=== PATIENT | female | born 1955 | race Caucasian/White ===

== ENCOUNTER 2017-05-02 06:47 | Day surgery (SDC) | payer MEDICARE, OTHER ==
[~2017-05-02] VITALS: Ht 167.6 cm; Wt 61.4 kg
[2017-05-02 07:51] VITALS: Ht 167.6 cm; Wt 61.4 kg
[2017-05-02] MEDS ORDERED: ATIVAN (07:55)
[2017-05-02] MEDS ORDERED: SEROQUEL (07:55)
[2017-05-02] MEDS ORDERED: ANTIDEPRESSANT (07:55)
[2017-05-02 08:12] VITALS: BP 183/102; PULSE 83; RESP 13
[2017-05-02] MEDS ORDERED: MIDAZOLAM 1 MG/ML 2 ML INJ ONE (08:16)
[2017-05-02] MEDS ORDERED: PROPOFOL 20 ML ONE (08:16)
[2017-05-02] MEDS ORDERED: LIDOCAINE 2% (SDV) 5 ML INJ ONE (08:16)
[2017-05-02] MEDS ORDERED: LABETALOL HCL 20MG INJ ONE (08:53)
--- NOTE | 2017-05-02 08:54 | OPPN ---
Date/Time of Note Date/Time of Note DATE: 05/02/17 TIME: 08:48 Proc Note GI Procedure date: May 02, 2017 Pre-procedure Diagnosis Patient presenting with history for chronic abdominal pain unresponsive to routine therapy peptic ulcer disease rule out gastroesophageal reflux disease Post-procedure Diagnosis Moderate degree of reflux esophagitis Hiatal hernia Operation Performed EGD Surgeon: SOFIA ALVAREZ MD Anesthesia Type: MAC Anesthesiologist: AURORA NEGRON DO Estimated blood loss: none Transfusion Required: no Specimens esophageal biopsy Biopsy of stomach Grafts/Implants: none Tubes/Drains None Complications: no Pt Condition post procedure: stable Indications Abdominal pain heartburn Operative\Procedure Findings Informed written consent is obtained patient was given anesthesia intravenously by anesthesiologist She became somnolent Olympus video endoscope was introduced into the oropharynx Esophagus linear erosions were noted in the distal esophagus Labs were obtained to rule out Correa's esophagus The stem was advanced into the stomach hiatal hernia was noted \No gastritis no ulcer disease noted Biopsy was obtained from the antrum the lesser curvature in the fundus to rule out H. pylori infection Duodenum appear normal up to the end of the third portion \This and was withdrawn and the procedure was terminated plan rec omeprazole Wait for the pathology report SOFIA ALVAREZ MD May 02, 2017 08:54
--- NOTE | 2017-05-02 08:57 | OPPN ---
Date/Time of Note Date/Time of Note DATE: 05/02/17 TIME: 08:54 Proc Note GI Procedure date: May 02, 2017 Pre-procedure Diagnosis Screening colonoscopy Post-procedure Diagnosis Minimal hemorrhoids Operation Performed Colonoscopy Surgeon: SOFIA ALVAREZ MD Anesthesia Type: MAC Anesthesiologist: AURORA GONZALEZ DO Estimated blood loss: none Transfusion Required: no Specimen: none Grafts/Implants: none Complications: no Pt Condition post procedure: stable Indications Rule out colon polyps Operative\Procedure Findings Minimal internal and external hemorrhoids were noted Informed written consent is obtained patient was ostial in the left lateral side. Intravenous anesthesia was given by anesthesiologist Dr. gonzalez The patient become somnolent Olympus videocolonoscope was introduced into the rectum. at this and was advanced all the way to the cecum. Liquid stool was noted most of it was aspirated No major lesion noted small polyps cannot be excluded Dilation was carried out on the way out. retroflexion was performed minimal internal hemorrhoids were noted Number external hemorrhoids were noted but the scope was withdrawn Plan recommend repeat colonoscopy in 10 years SOFIA ALVAREZ MD May 02, 2017 08:57
[2017-05-02 09:19] VITALS: BP 170/95; RESP 18
== END 2017-05-02 13:40 | disposition home or self-care (01) ==
LOC: GIL 06:47
PROVIDERS: ATTEND Internal Medicine Gastroenterology
DX: Z12.11 Encounter for screening for malignant neoplasm of colon (principal); K21.0 Gastro-esophageal reflux disease with esophagitis; K22.70 Barrett's esophagus without dysplasia; K44.9 Diaphragmatic hernia without obstruction or gangrene; K64.4 Residual hemorrhoidal skin tags; K64.8 Other hemorrhoids; F41.8 Other specified anxiety disorders
CPT/HCPCS: 43239; 45378; 88305; 88312; 88313; J2250